=== PATIENT | male | born 1935 | race Caucasian/White ===

== ENCOUNTER 2023-07-05 16:21 | Observation (INO) | payer MEDICARE ==
[~2023-07-05] VITALS: Ht 167.6 cm; Wt 75.0 kg
[2023-07-05] MEDS ORDERED: ACETAMINOPHEN TAB 650MG DOSE (2X325MG) PO ONE (21:10)
[2023-07-05] MEDS ORDERED: AUGMENTIN 875 MG TAB PO ONE (21:10)
[2023-07-05 21:13] LABS: BASO % 0.3 % (0.0-1.0); EOS % 0.1 % (0.0-3.0); HEMATOCRIT 39.4 % (42.0-52.0); HEMOGLOBIN 12.9 g/dl (13.5-17.5); LYMPH # 1.4 10^3/uL (1.5-5.0); LYMPH % 10.6 % (24.0-44.0); MEAN CORPUSCULAR HEMOGLOBIN 32.7 pg (27.0-33.0); MEAN CORPUSCULAR HGB CONC 32.7 g/dl (32.0-36.5); MONO # 0.9 10^3/uL (0.0-0.8); NEUTROPHILS # 10.5 10^3/uL (1.5-8.5); NEUTROPHILS % 81.7 % (36.0-66.0); PLATELET COUNT, AUTOMATED 213 10^3/uL (150-450); RED BLOOD COUNT 3.94 10^6/uL (4.30-6.10); WHITE BLOOD COUNT 12.9 10^3/uL (4.0-10.0)
[2023-07-05] MEDS ORDERED: LIDOCAINE 1% MDV 20ML VIAL SC ONE (21:25)
[2023-07-05 21:53] LABS: RSV AMPLIFICATION NEGATIVE (NEGATIVE)
[2023-07-05] MEDS ORDERED: MOM 30ML SUSPENSION UDC PO PRN (23:40)
[2023-07-05] MEDS ORDERED: MAALOX 30 ML SUSP *UDC PO PRN (23:40)
[2023-07-06] MEDS ORDERED: UNRESOLVED CLARIFICATION ENTRY XX SCH (00:01)
[2023-07-06] MEDS ORDERED: OCUVTAB4 PO (01:07)
[2023-07-06] MEDS ORDERED: ACET-897 PO (01:07)
[2023-07-06] MEDS ORDERED: FLOM0.4C39 PO (01:07)
[2023-07-06] MEDS ORDERED: ENAL1TAB52 PO (01:07)
[2023-07-06] MEDS ORDERED: XALA0.007 OU (01:07)
[2023-07-06] MEDS ORDERED: VITMTA PO (01:07)
[2023-07-06] MEDS ORDERED: B-650TAB2 PO (01:07)
[2023-07-06] MEDS ORDERED: HOME MED LIST COMPLETE! XX SCH (01:10)
[2023-07-06 01:27] VITALS: BP 140/79; TEMP 98.4; O2SAT 97
[2023-07-06] MEDS ORDERED: NORCO, ANEXSIA 5/325MG TABLET (HYDROcodone/ACETAMINOPHEN) PO PRN (02:00)
[2023-07-06] MEDS: ACETAMINOPHEN TAB 650MG DOSE (2X325MG) PO PRN ×3 (05:12→20:33)
[2023-07-06 06:32] LABS: HEMATOCRIT 36.1 % (42.0-52.0); HEMOGLOBIN 11.8 g/dl (13.5-17.5); MEAN CORPUSCULAR HEMOGLOBIN 32.4 pg (27.0-33.0); MEAN CORPUSCULAR HGB CONC 32.7 g/dl (32.0-36.5); MEAN CORPUSCULAR VOLUME 99.2 fl (80.0-96.0); PLATELET COUNT, AUTOMATED 197 10^3/uL (150-450); RED BLOOD COUNT 3.64 10^6/uL (4.30-6.10); WHITE BLOOD COUNT 9.2 10^3/uL (4.0-10.0)
[2023-07-06 06:58] LABS: CALCIUM LEVEL 8.8 MG/DL (8.3-10.6); CREATININE FOR GFR 1.33 MG/DL (0.70-1.30); GLOMERULAR FILTRATION RATE 54.1 (>35); MAGNESIUM LEVEL 1.6 MG/DL (1.8-2.4); POTASSIUM SERUM 4.5 MMOL/L (3.5-5.1)
[2023-07-06 08:00] VITALS: BP 152/64; TEMP 97.7; O2SAT 100
[2023-07-06] MEDS ORDERED: MAG SULF 1GM/100ML (MAG RUN) 1 GM in IV 1 EA IV ONE (08:00)
[2023-07-06 08:02] LABS: ALBUMIN 3.4 G/DL (3.2-5.2); BILIRUBIN,TOTAL 1.1 MG/DL (0.3-1.2)
[2023-07-06] MEDS: ENOXAPARIN 40MG/0.4ML SYRINGE (J1650 PER 10MG) SC SCH (08:30)
[2023-07-06] MEDS: PYRIDOXINE 50 MG TAB PO SCH (09:14)
[2023-07-06 15:32] VITALS: BP 166/70; TEMP 98; O2SAT 98
[2023-07-06 19:56] VITALS: BP 148/72; TEMP 98.7; O2SAT 97
[2023-07-06] MEDS: LATANOPROST 0.005% OPHTH SOLN 2.5 ML OU SCH (20:33)
[2023-07-06] MEDS: TAMSULOSIN 0.4 MG CAP PO SCH (20:33)
[2023-07-07] MEDS: ACETAMINOPHEN TAB 650MG DOSE (2X325MG) PO PRN ×3 (03:29→21:11)
[2023-07-07 06:17] LABS: HEMATOCRIT 36.2 % (42.0-52.0); HEMOGLOBIN 11.7 g/dl (13.5-17.5); MEAN CORPUSCULAR HEMOGLOBIN 31.8 pg (27.0-33.0); MEAN CORPUSCULAR HGB CONC 32.3 g/dl (32.0-36.5); MEAN CORPUSCULAR VOLUME 98.4 fl (80.0-96.0); PLATELET COUNT, AUTOMATED 168 10^3/uL (150-450); RED BLOOD COUNT 3.68 10^6/uL (4.30-6.10)
[2023-07-07 06:50] LABS: ALBUMIN 3.3 G/DL (3.2-5.2); ALKALINE PHOSPHATASE 57 U/L (46-116); ALT/SGPT 20 U/L (7.0-40); AST/SGOT 17 U/L (<34); BILIRUBIN,TOTAL 1.1 MG/DL (0.3-1.2); BLOOD UREA NITROGEN 25 MG/DL (9-23); CALCIUM LEVEL 8.8 MG/DL (8.3-10.6); CARBON DIOXIDE LEVEL 23 MMOL/L (20-31); CHLORIDE LEVEL 105 MMOL/L (98-107); CREATININE FOR GFR 1.21 MG/DL (0.70-1.30); GLOMERULAR FILTRATION RATE > 60.0 (>35); GLUCOSE, FASTING 104 MG/DL (74-106); MAGNESIUM LEVEL 1.6 MG/DL (1.8-2.4); POTASSIUM SERUM 4.5 MMOL/L (3.5-5.1); SODIUM LEVEL 138 MMOL/L (136-145); TOTAL PROTEIN 5.9 G/DL (5.7-8.2)
[2023-07-07] MEDS ORDERED: traMADol 50 MG TAB PO PRN (06:55)
[2023-07-07] MEDS: ENOXAPARIN 40MG/0.4ML SYRINGE (J1650 PER 10MG) SC SCH (08:15)
[2023-07-07] MEDS: PYRIDOXINE 50 MG TAB PO SCH (08:16)
[2023-07-07] MEDS: amLODIPine 5 MG TAB PO SCH (12:03)
[2023-07-07] MEDS: MAGNESIUM OXIDE 400MG TAB (MAG-OX) PO SCH ×2 (12:03→21:11)
[2023-07-07 14:11] VITALS: BP 138/80; TEMP 99.1; O2SAT 94
[2023-07-07 15:49] VITALS: BP 128/81; TEMP 98.6; O2SAT 97
[2023-07-07] MEDS: TAMSULOSIN 0.4 MG CAP PO SCH (21:12)
[2023-07-07] MEDS: LATANOPROST 0.005% OPHTH SOLN 2.5 ML OU SCH (21:12)
[2023-07-08 05:00] VITALS: BP 119/66; TEMP 98.2; O2SAT 98
[2023-07-08 07:21] LABS: HEMATOCRIT 34.5 % (42.0-52.0); HEMOGLOBIN 11.2 g/dl (13.5-17.5); MEAN CORPUSCULAR HEMOGLOBIN 32.1 pg (27.0-33.0); MEAN CORPUSCULAR HGB CONC 32.5 g/dl (32.0-36.5); MEAN CORPUSCULAR VOLUME 98.9 fl (80.0-96.0); PLATELET COUNT, AUTOMATED 173 10^3/uL (150-450); RED BLOOD COUNT 3.49 10^6/uL (4.30-6.10); WHITE BLOOD COUNT 10.7 10^3/uL (4.0-10.0)
[2023-07-08 07:41] LABS: BILIRUBIN,TOTAL 1.2 MG/DL (0.3-1.2); CALCIUM LEVEL 8.7 MG/DL (8.3-10.6); CREATININE FOR GFR 1.23 MG/DL (0.70-1.30); GLOMERULAR FILTRATION RATE 59.3 (>35); MAGNESIUM LEVEL 1.8 MG/DL (1.8-2.4); POTASSIUM SERUM 4.5 MMOL/L (3.5-5.1); TOTAL PROTEIN 5.9 G/DL (5.7-8.2)
[2023-07-08] MEDS: PYRIDOXINE 50 MG TAB PO SCH (09:48)
[2023-07-08] MEDS: ENOXAPARIN 40MG/0.4ML SYRINGE (J1650 PER 10MG) SC SCH (09:48)
[2023-07-08] MEDS: MAGNESIUM OXIDE 400MG TAB (MAG-OX) PO SCH ×2 (09:49→20:02)
[2023-07-08] MEDS: amLODIPine 5 MG TAB PO SCH (09:53)
[2023-07-08] MEDS: TAMSULOSIN 0.4 MG CAP PO SCH (20:02)
[2023-07-08] MEDS: LATANOPROST 0.005% OPHTH SOLN 2.5 ML OU SCH (20:03)
[2023-07-09 05:16] VITALS: BP 133/86; TEMP 99; O2SAT 96
[2023-07-09 06:27] LABS: HEMOGLOBIN 11.2 g/dl (13.5-17.5); MEAN CORPUSCULAR HEMOGLOBIN 32.7 pg (27.0-33.0); MEAN CORPUSCULAR HGB CONC 32.9 g/dl (32.0-36.5); MEAN CORPUSCULAR VOLUME 99.4 fl (80.0-96.0); PLATELET COUNT, AUTOMATED 198 10^3/uL (150-450); RED BLOOD COUNT 3.42 10^6/uL (4.30-6.10); WHITE BLOOD COUNT 10.9 10^3/uL (4.0-10.0)
[2023-07-09 06:52] LABS: ALBUMIN 2.7 G/DL (3.2-5.2); BILIRUBIN,TOTAL 1.1 MG/DL (0.3-1.2); CALCIUM LEVEL 8.4 MG/DL (8.3-10.6); CREATININE FOR GFR 1.41 MG/DL (0.70-1.30); GLOMERULAR FILTRATION RATE 50.6 (>35); MAGNESIUM LEVEL 1.7 MG/DL (1.8-2.4); POTASSIUM SERUM 4.7 MMOL/L (3.5-5.1); TOTAL PROTEIN 5.8 G/DL (5.7-8.2)
[2023-07-09] MEDS: PYRIDOXINE 50 MG TAB PO SCH (09:10)
[2023-07-09] MEDS: MAGNESIUM OXIDE 400MG TAB (MAG-OX) PO SCH ×2 (09:10→19:44)
[2023-07-09] MEDS: amLODIPine 5 MG TAB PO SCH (09:10)
[2023-07-09] MEDS: ENOXAPARIN 40MG/0.4ML SYRINGE (J1650 PER 10MG) SC SCH (09:11)
[2023-07-09] MEDS ORDERED: MAGNESIUM OXIDE 400MG TAB (MAG-OX) PO ONE (17:15)
[2023-07-09] MEDS: TAMSULOSIN 0.4 MG CAP PO SCH (19:44)
[2023-07-09] MEDS: LATANOPROST 0.005% OPHTH SOLN 2.5 ML OU SCH (19:47)
[2023-07-10] MEDS ORDERED: HEPARIN SOD (PORCINE) 5000UNITS/ML 1ML VIAL/SYRINGE SQ SCH (06:00)
[2023-07-10 06:11] VITALS: BP 122/73; TEMP 98.8; O2SAT 97
[2023-07-10] MEDS: ACETAMINOPHEN TAB 650MG DOSE (2X325MG) PO PRN (06:21)
[2023-07-10 06:49] LABS: HEMATOCRIT 33.1 % (42.0-52.0); HEMOGLOBIN 10.7 g/dl (13.5-17.5); MEAN CORPUSCULAR HEMOGLOBIN 32.1 pg (27.0-33.0); MEAN CORPUSCULAR HGB CONC 32.3 g/dl (32.0-36.5); MEAN CORPUSCULAR VOLUME 99.4 fl (80.0-96.0); PLATELET COUNT, AUTOMATED 211 10^3/uL (150-450); RED BLOOD COUNT 3.33 10^6/uL (4.30-6.10)
[2023-07-10 06:52] LABS: ALBUMIN 2.4 G/DL (3.2-5.2); BILIRUBIN,TOTAL 0.9 MG/DL (0.3-1.2); CALCIUM LEVEL 8.4 MG/DL (8.3-10.6); CREATININE FOR GFR 1.29 MG/DL (0.70-1.30); GLOMERULAR FILTRATION RATE 56.1 (>35); MAGNESIUM LEVEL 2.4 MG/DL (1.8-2.4); POTASSIUM SERUM 4.7 MMOL/L (3.5-5.1); TOTAL PROTEIN 5.5 G/DL (5.7-8.2)
[2023-07-10] MEDS ORDERED: MAGNESIUM OXIDE 400MG TAB (MAG-OX) PO SCH (09:00)
[2023-07-10 09:45] VITALS: BP 125/76; TEMP 98.2; O2SAT 99
[2023-07-10 10:06] VITALS: BP 125/76
[2023-07-10] MEDS: PYRIDOXINE 50 MG TAB PO SCH (10:06)
[2023-07-10] MEDS: amLODIPine 5 MG TAB PO SCH (10:06)
[2023-07-10] MEDS ORDERED: ACET1TAB55 PO (10:56)
[2023-07-10] MEDS ORDERED: ENAL1TAB50 PO (10:56)
[2023-07-10] MEDS ORDERED: MOM30SS2 PO (10:56)
[2023-07-10] MEDS ORDERED: HYDR-3715 PO (10:56)
== END 2023-07-10 13:51 ==
LOC: M ED 16:21 → M ED INP 16:22 → M PCU 07-06 01:25 → M MSPAV 07-07 15:46
PROVIDERS: ADMIT Family Medicine; ATTEND Internal Medicine Nephrology
DX: S82.045A Nondisplaced comminuted fracture of left patella, initial encounter for closed fracture (principal); S02.2XXA Fracture of nasal bones, initial encounter for closed fracture; S62.316A Displaced fracture of base of fifth metacarpal bone, right hand, initial encounter for closed fracture; S01.111A Laceration without foreign body of right eyelid and periocular area, initial encounter; R26.81 Unsteadiness on feet; W01.0XXA Fall on same level from slipping, tripping and stumbling without subsequent striking against object, initial encounter; Y92.512 Supermarket, store or market as the place of occurrence of the external cause; Y93.01 Activity, walking, marching and hiking; R94.4 Abnormal results of kidney function studies; I12.9 Hypertensive chronic kidney disease with stage 1 through stage 4 chronic kidney disease, or unspecified chronic kidney disease; N40.0 Benign prostatic hyperplasia without lower urinary tract symptoms; D72.829 Elevated white blood cell count, unspecified; N18.9 Chronic kidney disease, unspecified; E83.42 Hypomagnesemia; Z87.891 Personal history of nicotine dependence; Z88.5 Allergy status to narcotic agent; Z79.899 Other long term (current) drug therapy; Z66 Do not resuscitate
CPT/HCPCS: 36415; 70450; 70486; 72125; 73130; 73564; 80047; 80053; 83735; 85025; 85027; 87631; 96372; 97161; 97530; 99284; J1650; J3475

== ENCOUNTER → 2023-08-09 | Outpatient (CLI) | payer MEDICARE ==
[~2023-08-09] MED LIST: ACET-897 PO; ACET1TAB55 PO; AMLO1TAB24 PO; B-650TAB2 PO; ENAL1TAB50 PO; ENAL1TAB52 PO; FLOM0.4C39 PO; HYDR-3715 PO; MOM30SS2 PO; OCUVTAB4 PO; VITMTA PO; XALA0.007 OU
== END ==
LOC: M SOG 09:47
PROVIDERS: ATTEND Physician Assistant
DX: S62.346A Nondisplaced fracture of base of fifth metacarpal bone, right hand, initial encounter for closed fracture (principal); S82.002D Unspecified fracture of left patella, subsequent encounter for closed fracture with routine healing; M11.262 Other chondrocalcinosis, left knee; X58.XXXA Exposure to other specified factors, initial encounter; Y92.9 Unspecified place or not applicable; Y93.9 Activity, unspecified; Y99.9 Unspecified external cause status

== ENCOUNTER → 2023-09-25 | Outpatient (CLI) | payer MEDICARE | LOC: M SOG 07:52 | PROVIDERS: ATTEND Physician Assistant | DX: S82.002D Unspecified fracture of left patella, subsequent encounter for closed fracture with routine healing (principal); M11.262 Other chondrocalcinosis, left knee; M85.862 Other specified disorders of bone density and structure, left lower leg ==

== ENCOUNTER 2023-10-17 05:59 | Day surgery (SDC) | payer MEDICARE ==
[~2023-10-17] VITALS: Ht 167.6 cm; Wt 71.6 kg
[2023-10-17] MEDS ORDERED: ceFAZolin SOD 2 GM in IV 1 EA IV ONE (06:00)
[2023-10-17] MEDS ORDERED: LR 1,000 ML IV SCH (06:40)
[2023-10-17] MEDS ORDERED: LIDOCAINE 2% 100MG/5ML SDV (FOR ANES.) As Ordered ONE (07:07)
[2023-10-17] MEDS ORDERED: ONDANSETRON 4MG 2ML VIAL As Ordered ONE (07:07)
[2023-10-17] MEDS ORDERED: fentaNYL 100 MCG/2 ML INJECTION As Ordered ONE (07:07)
[2023-10-17] MEDS ORDERED: MIDAZOLAM INJ 2MG/2ML VIAL As Ordered ONE (07:07)
[2023-10-17] MEDS ORDERED: propofoL 200 MG/20 ML VIAL As Ordered ONE (07:07)
[2023-10-17] MEDS ORDERED: ACETAMINOPHEN 1000MG 100ML IV BAG As Ordered ONE (07:54)
[2023-10-17] MEDS ORDERED: KETOROLAC 60MG 2ML VIAL As Ordered ONE (08:11)
[2023-10-17] MEDS ORDERED: BACITRACIN OINTMENT 30GM TUBE As Ordered ONE (08:41)
[2023-10-17] MEDS ORDERED: fentaNYL 100 MCG/2 ML INJECTION IV PRN (09:00)
[2023-10-17] MEDS ORDERED: ONDANSETRON 4MG 2ML VIAL IV PRN (09:00)
[2023-10-17 09:24] VITALS: BP 136/67; TEMP 98.6; O2SAT 96
== END 2023-10-17 09:56 | disposition home or self-care (01) ==
LOC: M SDC 05:59
PROVIDERS: ATTEND Orthopaedic Surgery Hand Surgery
DX: G56.01 Carpal tunnel syndrome, right upper limb (principal); I10 Essential (primary) hypertension; N40.1 Benign prostatic hyperplasia with lower urinary tract symptoms; R35.0 Frequency of micturition; Z79.899 Other long term (current) drug therapy; Z88.5 Allergy status to narcotic agent
CPT/HCPCS: 64721; C1762; J0131; J0665; J1885; J2250; J2405; J3010